=== PATIENT | female | born 1960 | race Caucasian/White ===

== ENCOUNTER → 2019-07-25 | Outpatient (CLI) | payer BC ==
--- NOTE | 2019-07-25 22:18 | Diagnostic Imaging Report ---
INDICATION: Routine screening. COMPARISON: Prior mammogram of 06/17/2015 and 09/10/2013. EXAMINATION: 2D and 3D bilateral screening mammography was performed CAD. 3D tomographic images were obtained and reviewed. FINDINGS: Both breasts remain heterogeneously dense, limiting the sensitivity of mammography. Calcifications have developed in the upper portion of the right breast at mid to posterior depth. Additional views are recommended for further evaluation. Patient also reports having a palpable abnormality in the left breast. A BB marker was placed on the lateral and upper portion of the left breast. There is a fairly well-circumscribed rounded mass in the outer left breast at mid depth, potentially accounting for the palpable abnormality. Additional views and ultrasound of this area are recommended as well. Calcifications in the medial left breast at posterior depth have increased. Additional views of these calcifications should be performed. Axillae are unremarkable. IMPRESSION: 1. Increase in bilateral microcalcifications, as described. Additional views are recommended. 2. Circumscribed lesion in the outer and likely upper left breast mid depth. Additional views and ultrasound are recommended. Ultrasound evaluation of the area of the patient's palpable abnormality should also be performed in the left breast. ACR BI-RADS Category 0: Incomplete. (Needs additional imaging evaluation). Result letter will be mailed to the patient. Note: At least 10% of breast cancer is not imaged by mammography. Dictated by: Dictated on workstation # [id number]
== END ==
LOC: RAD 07:30
PROVIDERS: ATTEND Obstetrics & Gynecology
DX: Z12.31 Encounter for screening mammogram for malignant neoplasm of breast (principal); N64.89 Other specified disorders of breast; R92.0 Mammographic microcalcification found on diagnostic imaging of breast
CPT/HCPCS: 77067

== ENCOUNTER → 2019-08-03 | Outpatient (CLI) | payer BC ==
--- NOTE | 2019-08-03 16:32 | Diagnostic Imaging Report ---
EXAMINATION: Digital mammogram bilateral diagnostic. The current study was also evaluated with a Computer Aided Detection (CAD) system. 3-D tomosynthesis was also performed and reviewed. INDICATION: Abnormal screening mammogram. FINDINGS: The screening mammogram performed on 07/25/2019 noted newly developed calcifications in the superior aspect of the right breast at mid and posterior depth. Compression and magnification views show that there is a group of indeterminate microcalcifications in this area. There are a few vascular calcifications in this region as well, but these newly developed calcifications are worrisome for malignancy. A stereotactic biopsy will be recommended. The screening mammogram also identified a number of microcalcifications in the inferomedial aspect of the left breast at posterior depth. These have also developed since the prior exam. These too are worrisome for malignancy and a stereotactic biopsy of this group should be performed as well. The nodular density in the midportion of the left breast seen on the craniocaudal view is not as well visualized on the compression view of this area; however, in reviewing the tomographic images, there does indeed appear to be a density in this area. I would recommend that ultrasound of the left breast be performed for further study. IMPRESSION: 1. A stereotactic biopsy of the newly developed calcifications in the right breast and in the inferomedial aspect of the left breast should be obtained. 2. Ultrasound will be recommended for further evaluation of the nodular density in the mid lateral aspect of the left breast. 3. These results were discussed with Dr. LOKI BROWN. ACR BI-RADS Category 4: Suspicious abnormality. Result letter will be mailed to the patient. Note: At least 10% of breast cancer is not imaged by mammography. Dictated by: Dictated on workstation # [id number]
--- NOTE | 2019-08-03 17:43 | Diagnostic Imaging Report ---
EXAMINATION: Ultrasound of the left breast, limited. INDICATION: Left breast lump. FINDINGS: The screening mammogram performed on 07/25/2019 noted a roughly 1 cm well-circumscribed rounded mass in the lateral aspect of the left breast at mid depth. The tomographic views of this area suggest that this density had a generally benign appearance. On the diagnostic mammogram performed prior to this study, the density was not well visualized. On this exam, there is a well-circumscribed 1.5 x 1.1 x 0.9 cm avascular anechoic lesion in the 12 o'clock position roughly 7 cm from the nipple. There is a second smaller 0.9 x 0.7 x 0.4 cm similar-appearing lesion in the 2 o'clock position. I suspect that these are benign cysts and that that larger of the two cysts corresponds to the density seen on the mammogram. There are no solid lesions evident in this area to suggest malignancy. The patient does report a palpable mass in this area. If clinical concern regarding an underlying abnormality persists, then biopsy of the palpable mass should still be considered. IMPRESSION: 1. There are two benign-appearing cysts in the left breast. The larger of the cysts most likely corresponds to the density seen on the mammogram. 2. There is no solid mass to correspond to the patient's reported palpable mass in this area. Recommendations as above. 3. These results were discussed with Dr. Rubin Jackson. ACR BI-RADS Category 2: Benign findings. Result letter will be mailed to the patient. Note: At least 10% of breast cancer is not imaged by mammography. Dictated by: Dictated on workstation # [id number]
== END ==
LOC: RAD 08:04
PROVIDERS: ATTEND Obstetrics & Gynecology
DX: N60.02 Solitary cyst of left breast (principal); N63.20 Unspecified lump in the left breast, unspecified quadrant
CPT/HCPCS: 76642; 77066

== ENCOUNTER → 2019-08-24 | Outpatient (CLI) | payer BC ==
[~2019-08-24] VITALS: Ht 162.6 cm; Wt 100.0 kg
[~2019-08-24] MED LIST: LIDOCAINE 1% INJ 20 ML 20 ML VIAL INJ ONE; LIDOCAINE 1% INJ 20 ML 20 ML VIAL ONE
--- NOTE | 2019-08-24 17:58 | Diagnostic Imaging Report ---
INDICATION: Left breast calcifications. Patient presents for stereotactic biopsy. TECHNIQUE: Patient was brought to stereotactic suite and placed on a chair in a sitting upright position. The left breast was positioned mediolateral. Calcifications in the medial left breast were stereotactically targeted. Medial left breast was then prepped and draped in usual sterile fashion. A small amount of 1% lidocaine was utilized for local anesthesia. 8 gauge biopsy needle was advanced into the left breast via mediolateral approach and placed per stereotactic coordinates. A total of 4 core biopsies were obtained utilizing vacuum-assisted device. Specimen radiograph does show multiple calcifications within the samples, particularly sample labeled #4. A marker clip was then deployed. Needle was removed and hemostasis was obtained. Patient tolerated the procedure well. Postprocedure mammogram demonstrates the marker clip in the medial aspect of the left breast. IMPRESSION: Successful stereotactic biopsy of the calcifications in the medial left breast. Pathology results are currently pending. Dictated by: Dictated on workstation # [id number]
--- NOTE | 2019-08-24 18:01 | Diagnostic Imaging Report ---
INDICATION: Right breast calcifications. Patient presents for stereotactic biopsy. TECHNIQUE: Patient was brought to stereotactic suite and placed in a chair in the sitting upright position. Right breast was positioned lateromedial. Calcifications in the upper central right breast were stereotactically targeted. The lateral portion of the right breast was prepped and draped in usual sterile fashion. A small amount of 1% lidocaine was utilized for local anesthesia. A 10-gauge needle was advanced into the right breast from a lateral medial approach and placed per stereotactic coordinates. A total of six core biopsies were obtained utilizing a vacuum-assisted device. Specimen radiograph demonstrates several calcifications within the samples. A marker clip was then deployed. Needle was removed and hemostasis was obtained using manual compression. Patient tolerated the procedure well. IMPRESSION: Successful stereotactic biopsy right breast calcifications. Pathology results are currently pending. Dictated by: Dictated on workstation # [id number]
== END ==
LOC: RAD 08:07
PROVIDERS: ATTEND Surgery
DX: R92.1 Mammographic calcification found on diagnostic imaging of breast (principal); Z85.3 Personal history of malignant neoplasm of breast
CPT/HCPCS: 19081

== ENCOUNTER 2019-09-14 08:15 | Inpatient (IN) | payer BC ==
[~2019-09-14] VITALS: Ht 162.6 cm; Wt 93.2 kg
[2019-09-26] MEDS ORDERED: LEVO112T55 PO (10:23)
[2019-10-03] VITALS (10 sets, daily range): BP systolic 141–188; BP diastolic 71–102
[2019-10-03] MEDS ORDERED: BUP/EPI 0.5% 1:200,000 (MARCAINE) 10ML VIAL IJ ONE (07:15)
[2019-10-03] MEDS ORDERED: ceFAZolin 2 GM/50 ML NS 50 ML IV ONE (07:30)
[2019-10-03] MEDS ORDERED: DEXAMETHASONE 10 MG/ML (DECADRON) 1 ML VIAL ONE (07:34)
[2019-10-03] MEDS ORDERED: proPOfol 200 MG/20 ML (DIPRIVAN) VIAL IV ONE (07:34)
[2019-10-03] MEDS ORDERED: LIDOCAINE PF 2% 5 ML (XYLOCAINE) VIAL ONE (07:34)
[2019-10-03] MEDS ORDERED: MIDAZOLAM 2 MG/2 ML (VERSED) VIAL ONE (07:34)
[2019-10-03] MEDS ORDERED: ONDANSETRON 4 MG/2 ML (SDV) Z0FRAN ONE ×2 (07:34→07:41)
[2019-10-03] MEDS ORDERED: fentaNYL INJECTION 100 MCG/2 ML AMP ONE (07:35)
[2019-10-03] MEDS ORDERED: SEVOFLURANE (ULTANE) 15 ML INHAL SOLN ONE ×6 (07:35→10:43)
[2019-10-03] MEDS: LACTATED RINGERS 1,000 ML IV PRN ×3 (07:37→12:51)
[2019-10-03] MEDS ORDERED: FAMOTIDINE 20MG/2ML IV (PEPCID) ONE (07:40)
[2019-10-03] MEDS ORDERED: FAMOTIDINE 20MG/2ML IV (PEPCID) IV ONE ×2 (07:45)
[2019-10-03] MEDS ORDERED: ONDANSETRON 4 MG/2 ML (SDV) Z0FRAN IV ONE (07:45)
--- NOTE | 2019-10-03 08:14 | Progress Note-Pre Operative ---
Pre-Operative Progress Note H&P Reviewed The H&P was reviewed, patient examined and no changes noted. Time Seen by Provider: 08:05 Date H&P Reviewed: Oct 03, 2019 Time H&P Reviewed: 08:06 Pre-Operative Diagnosis: B/L DCIS of breasts SUAD SINGH DO Oct 03, 2019 08:14 POS
[2019-10-03] MEDS ORDERED: SUCCINYLCHOLINE INJ 100 MG/5 ML SYR ONE (09:27)
[2019-10-03] MEDS ORDERED: ROCURONIUM 10 MG/ML 5 ML SYRINGE IV ONE (09:27)
[2019-10-03] MEDS ORDERED: BUPIVACAINE 0.5% 30 ML (SENSORCAINE) VIAL ONE ×2 (09:44→10:21)
--- NOTE | 2019-10-03 09:52 | Progress Note-Post Operative ---
Post-Operative Progess Note Surgeon (s)/Gameplay Engineer (s) Surgeon SUAD SINGH DO Gameplay Engineer: Dr. Jeffrey Pre-Operative Diagnosis B/L DCIS of breasts Post-Operative Diagnosis same pending path Procedure & Operative Findings Date of Procedure 10/03/19 Procedure Performed/Findings B/L Simple mastectomy Anesthesia Type GET Estimated Blood Loss Estimated blood loss (mL): appx 50ml Specimens/Packing Specimens Removed right and left breast SUAD SINGH DO Oct 03, 2019 09:52 POS
[2019-10-03] MEDS ORDERED: HYDROmorphone 2 MG/ML VIAL (DILAUDID) ONE (09:53)
[2019-10-03] MEDS ORDERED: ONDANSETRON 4 MG/2 ML (SDV) Z0FRAN IVP PRN ×2 (10:00→10:45)
[2019-10-03] MEDS ORDERED: HYDROmorphone 2 MG/ML VIAL (DILAUDID) IV ONE (10:45)
[2019-10-03] MEDS ORDERED: morphine INJ 10 MG/ML 1ML (SYR OR VIAL) IVP ONE (10:45)
[2019-10-03] MEDS ORDERED: PROMETHAZINE INJ 25 MG/ML (PHENERGAN) AMP IVP ONE (10:45)
[2019-10-03] MEDS ORDERED: MEPERIDINE (DEMEROL) INJ 50 MG/ML IVP ONE (10:45)
--- NOTE | 2019-10-03 11:30 | NUR ---
NINI GILL admitted to room 422-1, with an admitting diagnosis of post masstectomy, on 10/03/19 from PACU VIA BED, accompanied by staff and family.NINI GILL introduced to surroundings, call light, bed controls, phone, TV, temperature control, lights, meal times, smoking policy, visitor policy, side rail policy, bathrooms and showers. NINI GILL verbalizes understanding that [facility] is not responsible for the loss or damage to any personal effects or valuables that are kept in the patients posession during their hospitalization. Patient and/or family were informed about the Rapid Response Team and its purpose.
--- NOTE | 2019-10-03 11:32 | Anesthesia-General Post-Op ---
General Patient Condition Mental Status/LOC: Same as Preop Cardiovascular: Satisfactory Nausea/Vomiting: Absent Respiratory: Satisfactory Pain: Controlled Complications: Absent Post Op Complications Complications None Follow Up Care/Instructions Patient Instructions None needed. Anesthesia/Patient Condition Patient Condition Patient is doing well, no complaints, stable vital signs, no apparent adverse anesthesia problems. No complications reported per nursing. ALTAGRACIA UMANZOR CRNA Oct 03, 2019 11:32 POS
[2019-10-03] MEDS: LACTATED RINGERS 1,000 ML IV SCH ×2 (12:51→17:55)
[2019-10-03] MEDS ORDERED: LACTATED RINGERS 1,000 ML IV PRN (12:59)
[2019-10-03] MEDS: HYDROcodone/APAP 7.5 MG/325 MG (LORTAB, LORCET PLUS) TABLET PO PRN (17:03)
[2019-10-03] MEDS: ceFAZolin 2 GM/50 ML NS 50 ML IV SCH (17:56)
--- NOTE | 2019-10-03 21:27 | OPERATIVE REPORT ---
DATE OF SERVICE: PREOPERATIVE DIAGNOSIS: Bilateral ductal carcinoma in situ. POSTOPERATIVE DIAGNOSIS: Bilateral ductal carcinoma in situ, pending pathology. PROCEDURE: Bilateral simple mastectomy. SURGEON: Shahram Grullon DO NURSE OBGYN: Josemanuel Jeffrey DO ANESTHESIA: General endotracheal tube. SPECIMEN: Right breast and left breast skin and breast tissue. BLOOD LOSS: Approximately 50 mL. FLUIDS: Per anesthesia. POSTOPERATIVE CONDITION: Stable. INDICATION FOR PROCEDURE: The patient is a 59-year-old female who unfortunately had bilateral breast biopsy, came back both as DCIS. She had previous right DCIS and left DCIS was long area. Cancer committee recommended bilateral mastectomy. FINDINGS: The patient had a right breast removed and sent to pathology. PROCEDURE NOTE: After informed consent was obtained, the patient was brought to the operating room, placed on the operating table in supine position. She was sterilely prepped and draped in normal fashion. I started with the left breast. Made an elliptical incision around the nipple, carried down through the skin into subcutaneous tissue, then deepened down to subcutaneous tissue with Bovie electrocautery, creating flaps in superior and inferior direction going superiorly to the clavicle, inferiorly to below the inframammary fold, medially to the sternum and laterally to the serratus anterior using the Bovie electrocautery holding the skin up with hooks as well as Richardsons. Once we had created these flaps and gone all the way around down to the pectoralis major muscle and then removed the breast tissue from the pectoralis major muscle, taking the pectoralis major fascia with it. Once this was completely removed, actually felt like a lymph node in the left axilla this actually came with the breast tissue. We did not go into the axilla, just pulled out a small portion of it. Copiously irrigated with normal saline. Hemostasis obtained using Bovie electrocautery, then placed a 19-Wolof Tejinder drain out through the incision into the left flank and mid axillary line. This was sutured in place with a 2-0 nylon and then closed the incision closing with a 2-0 Vicryl subcutaneous sutures to bring this together and then closed the skin with 4-0 undyed Monocryl, one running from the middle of the incision, one running medially and then another one running laterally to close the incision. Then performed a right mastectomy with basically the same procedure using elliptical incision. Flaps superiorly to the clavicle, inferiorly to inframammary fold, medially to the sternum and laterally to the serratus anterior onto the axillary area, down to the pectoralis major muscle and taking the skin, breast tissue and the pectoralis major fascia. Once this removed, hemostasis obtained. Irrigated with water, then placed another 19-Wolof Tejinder drain, sutured in place with 2-0 silk suture and then closed with 2-0 Vicryl suture, closing the subcutaneous tissue and then closed the skin with 4-0 undyed Monocryl in running subcuticular fashion 2 sutures, one from the middle of the incision, one running medially, one running laterally. Area was then cleaned and dried. Pressure fluff dressings and a tight wrap was placed. The patient tolerated the procedure. Sponge, instrument and needle count correct at the end of the case. Dr. Jeffrey assisted in this case helping to make incisions, close the incisions, hold the anatomy out of the way. Job ID: [id number] DocumentID: [id number] Dictated Date: 10/03/2019 10:42:54 Milking Machine Operator Date: 10/03/2019 15:17:59 Dictated By: DO EDIN GAN
[2019-10-04 00:14] VITALS: BP 135/67
[2019-10-04] MEDS: HYDROcodone/APAP 7.5 MG/325 MG (LORTAB, LORCET PLUS) TABLET PO PRN ×2 (01:13→06:45)
[2019-10-04] MEDS: ceFAZolin 2 GM/50 ML NS 50 ML IV SCH (02:20)
[2019-10-04] MEDS: LACTATED RINGERS 1,000 ML IV SCH (02:20)
[2019-10-04 04:00] VITALS: BP 162/66
--- NOTE | 2019-10-04 07:40 | Progress Note - Surgery ---
SUSAN ROJAS,MED STUDENT 10/04/19 0740: Subjective Date Seen by a Provider: Oct 04, 2019 Time Seen by a Provider: 07:34 Subjective/Events-last exam Patient is 1 day post-op for bilateral simple mastectomy. Patient says that she is feeling good but does have some sharp pain in her left breast that occurs with activities like walking or moving her left arm; however, pain is controlled with hydrocodone. Patient says that she has not had a bowel movement since surgery but has had some flatulence. Patient is hungry and would like try some solid food that would be easy on the stomach. No other complaints or problems reported at this time. Review of Systems General: No Chills, No Fatigue; Appetite HEENT: No Head Aches, No Dysphasia, No Sore Throat Pulmonary: No Dyspnea; Cough Cardiovascular: Chest Pain, Palpitations; No: Lt Headedness Gastrointestinal: No: Nausea, Vomiting, Abdominal Pain, Diarrhea, Constipation Musculoskeletal: No: neck pain, shoulder pain, arm pain Neurological: No: Weakness, Numbness Objective Exam Vital Signs Date Time Temp Pulse Resp B/P (MAP) Pulse Ox O2 Delivery O2 Flow Rate FiO2 10/04/19 04:00 36.8 60 18 162/66 (98) 93 Room Air 10/04/19 00:14 37.0 63 18 135/67 (89) 94 Room Air 10/03/19 20:00 Room Air 10/03/19 19:36 37.0 74 18 158/73 (101) 95 Room Air 10/03/19 16:10 36.8 76 18 149/71 (97) 92 Room Air 10/03/19 11:32 35.4 70 18 188/75 (112) 98 Nasal Cannula 3.00 10/03/19 11:30 Nasal Cannula 3 10/03/19 11:20 36.2 16 167/89 (115) 96 Nasal Cannula 3 10/03/19 11:20 Nasal Cannula 3 10/03/19 11:10 16 162/82 (108) 94 10 10/03/19 11:10 OxyMask 3 10/03/19 11:00 OxyMask 10 10/03/19 11:00 16 169/84 (112) 94 OxyMask 10 10/03/19 10:50 16 180/102 (128) 94 OxyMask 10 10/03/19 10:45 OxyMask 10 10/03/19 10:40 12 173/89 (117) 95 OxyMask 10 10/03/19 10:31 OxyMask 10 10/03/19 10:31 36.4 12 150/89 (109) 95 OxyMask 10 I & O 10/04/19 07:00 Intake Total 2020 ml Output Total 605 ml Balance 1415 ml Capillary Refill : General Appearance: No Apparent Distress, WD/WN HEENT: PERRL/EOMI Neck: Non Tender, Supple Respiratory: Lungs Clear, Normal Breath Sounds, No Accessory Muscle Use, No Respiratory Distress Cardiovascular: Regular Rate, Rhythm, No Edema, No Murmur, Normal Peripheral Pulses Peripheral Pulses: 2+ Dorsalis Pedis (R), 2+ Left Dors-Pedis (L), 2+ Radial Pulses (R), 2+ Radial Pulses (L) Gastrointestinal: non tender, soft, no organomegaly Extremity: Non Tender, No Calf Tenderness, No Pedal Edema Neurologic/Psychiatric: Alert, Oriented x3, Normal Mood/Affect Skin: Normal Color Lymphatic: No Adenopathy Assessment/Plan Assessment/Plan Assessment/Plan Post-op for bilateral mastectomy monitor for ileus consider graduating to solid diet as tolerated and discharging to today if pat ient feels comfortable going home Clinical Quality Measures DVT/VTE Risk/Contraindication: Risk Factor Score Per Nursin RFS Level Per Nursing on Admit: 4+=Very High SHAHRAM GRULLON DO 10/04/19 0918: Subjective Time Seen by a Provider: 08:59 Subjective/Events-last exam Pt seen and examined, pain controlled with meds. Feels tired because of pain meds and wants solid foods. Review of Systems Pulmonary: No Dyspnea, No Cough Cardiovascular: No: Chest Pain Gastrointestinal: No: Nausea, Vomiting, Abdominal Pain Objective Exam General Appearance: No Apparent Distress, WD/WN Respiratory: Lungs Clear, Normal Breath Sounds, No Accessory Muscle Use Gastrointestinal: soft, no organomegaly Skin: Other (Minimal serous drainage in MIKA bulbs) Assessment/Plan Assessment/Plan Assessment/Plan S/P Bilateral mastectomy Pt will sent home, told to use IS and ambulate (a lot) at home. She will record her drain output and f/u in a week, she had no questions. Supervisory-Addendum Brief Verification & Attestation Participated in pt care: history, MDM, physical Personally performed: exam, history, MDM Care discussed with: Medical Student Procedures: n/a Verification and Attestation of Medical Student E/M Service A medical student performed and documented this service in my presence. I re viewed and verified all information documented by the medical student and made modifications to such information, when appropriate. I personally performed the physical exam and medical decision making. Shahram Grullon, Oct 04, 2019,09:17 SUSAN ROJAS,MED STUDENT Oct 04, 2019 07:40 SHAHRAM GIL DO Oct 04, 2019 09:18 POS
[2019-10-04 08:00] VITALS: BP 131/61
[2019-10-04] MEDS ORDERED: PANTOPRAZOLE 40 MG (PROTONIX) VIAL IVP SCH (09:00)
[2019-10-04] MEDS ORDERED: HYDR-34 PO (09:19)
--- NOTE | 2019-10-04 09:21 | Discharge Inst-Surgical ---
Discharge Inst-Surgical Depart Medication/Instructions New, Converted or Re-Newed RX: RX Given to Pt/Family Patient Instructions Follow up Appt: Make appointment for 1 week. [phone] Instructions: No lifting greater than 20 pounds. No strenuous activity. May shower in 24 hours, no tub bath or soaking. Use incentive spirometer at home as directed. No Smoking Skin/Wound Care: May remove bandages in am. You need to leave the Dermabond on incision it will fall off on it's own. Symptoms to Report: Appetite Changes, Extremity Discoloration, Numbness/Tingling, Swelling Increased, Bleeding Excessive, Eyesight Changes, Pain Increased, Urine Color Change, Constipation(Persistent), Fever over 101 degree F, Pain/Pressure in chest, Urinating Difficulty, Cough Up/Vomit Blood, Heart Beat Irreg/Pounding, Pain/Pressure in jaw, Cramps in feet or legs, Lightheadedness, Pain/Pressure in shoulder, Diarrhea(Persistent), Memory Changes Suddenly, Questions/Concerns, Weight gain consecutive days, Dizziness/Fainting, Nausea/Vomiting, Shortness of Breath, Weight gain over 2 pounds If questions or concerns contact your physician Or seek help at emergency department. Activity Activity as Tolerated: Yes Activity Instructions: Avoid Stress to Incision Driving Instructions: No Driving/Refer to Dr. Mead Discharge Diet: No Restrictions Diet After 24 Hours: Clear Liquid if Nauseous If Any Problems/Questions/Issu: Contact Your Physician, Go to Emergency Room Skin/Wound Care Infection Signs and Symptoms: Increased Redness, Foul Odor of Wound, Increased Drainage, Skin Itchy or Has a Rash, Increased Swelling, Temperature Above 101 F Wound Care Comment: Record drain output daily, please sides. Wear tight wrap around chest 24 hours a day for the next week, except to shower. Stitches/[place]/Dermabond Dis: Dermabond Ice Pack: Ice On and Off Site (if it helps with pain) SUAD SINGH DO Oct 04, 2019 09:21 POS
[2019-10-04] MEDS ORDERED: ENOXAPARIN 40 MG/0.4 ML (LOVENOX) SYR SC SCH (10:00)
[2019-10-04 12:00] VITALS: BP 140/65
--- NOTE | 2019-10-04 13:30 | NUR ---
NINI GILL demonstrates understanding of discharge instructions and accurately returns instructions upon questioning. Copy of Post-Discharge Instructions given to pt. NINI GILL is able to manage continuing needs after discharge. Patients belongings returned to pt. Patient discharged from 422-1 on 10/04/19 at 1330. NINI GILL left floor via w/c, accompanied by staff.
--- NOTE | 2019-10-11 14:25 | Physician Query Clarification ---
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 breast DCIS, Rt breast invasive carcinoma upper outer quadrant? Please document a response in Progress Notes or Discharge Summary. 1. Agree with pathological diagnosis of Lt. breast DCIS, Rt breast invasive carcinoma upper outer quadrant. 2. No - Do not agree with pathology findings of Lt breast DCIS, Rt breast invasive carcinoma upper outer quadrant. 3. Other, with explanation of the clinical findings. 4. Clinically undetermined, no explanation for the clinical findings. Is is appropriate for a provider to add additional documentation (addenda) to the record to explain the evaluation & care up to 30 days post-discharge. See [facility] and Patient Record Guidelines below. The [facility] Chapter Record of Care, Standard; RC.01.03.01EP 1: "The hospital has a written policy that required timely entry of information into the medical record." According to [facility] Patient Record Guidelines, ARTICLE XXI. CORRECTIONS AND ADDENDA, Modifications (addenda amendments, corrections and retractions) should be made timely and no later than regulatory requirements for record completion (i.e. 30 days post discharge). Official coding guidelines require coders to query the physician for agreement with pathology findings that occur during the encounter. Coders are not allowed to pull information directly from the path reports. PHYSICIAN RESPONSE Pathology Report Findings: Yes,agree w/path dx as documented Please remember a lack of response to the above will prompt a phone page by CDI/Coding staff. In responding to this query, please exercise your independent professional judgment. The purpose of this communication is to more accurately reflect the complexity of your patients condition. The fact that a question is asked does not imply that any particular answer is desired or expected. Thank you for your timely response to this clarification. Requestors name: Patricia THIS PHYSICIAN QUERY FORM IS A PERMANENT PART OF THE MEDICAL RECORD PATRICIA RUTH Oct 11, 2019 14:24 SUAD GIL DO Oct 11, 2019 19:25 POS
== END 2019-10-04 13:30 | disposition home or self-care (01) | DRG 583 ==
LOC: 4TH 10-03 06:47 → SURG 10-03 06:48 → EDSTATUS 10-03 10:35 → 4TH 10-03 11:35
PROVIDERS: ADMIT Surgery; ATTEND Surgery
PROC: 0HTV0ZZ Resection of Bilateral Breast, Open Approach (ICD-10-PCS; principal; 2019-10-03 08:16)
DX: C50.411 Malignant neoplasm of upper-outer quadrant of right female breast (principal); D05.12 Intraductal carcinoma in situ of left breast; Z87.891 Personal history of nicotine dependence; E66.9 Obesity, unspecified; Z68.35 Body mass index [BMI] 35.0-35.9, adult
CPT/HCPCS: 87081; 88307; 88341; 88342; 88360; 94664

== ENCOUNTER 2019-09-26 09:00 | Outpatient (CLI) | payer BC ==
[~2019-09-26] VITALS: Ht 162.6 cm; Wt 93.2 kg
[2019-09-26] MEDS ORDERED: LEVO112T55 PO (10:23)
== END 2019-09-26 10:33 ==
LOC: PREOP 09:00
PROVIDERS: ATTEND Surgery
DX: Z01.818 Encounter for other preprocedural examination (principal)

== ENCOUNTER → 2019-10-10 | Outpatient (CLI) | payer BC ==
[~2019-10-10] MED LIST changes: +HYDR-34 PO; +LEVO112T55 PO; -LIDOCAINE 1% INJ 20 ML 20 ML VIAL INJ ONE; -LIDOCAINE 1% INJ 20 ML 20 ML VIAL ONE
== END ==
LOC: LAB 13:00
PROVIDERS: ATTEND Surgery
DX: Z01.89 Encounter for other specified special examinations (principal)
CPT/HCPCS: 36415